=== PATIENT | female | born 1960 | race Caucasian/White ===

== ENCOUNTER 2017-08-13 12:17 | Emergency (ER) | payer MEDICARE ==
[2017-08-13 12:44] LABS: BILIRUBIN,URINE NEGATIVE (NEG); CLARITY,URINE CLEAR; COLOR,URINE YELLOW; GLUCOSE,URINE NEGATIVE (NEG); NITRITE,URINE NEGATIVE (NEG); PROTEIN,URINE NEGATIVE (NEG-TRACE); UROBILINOGEN,URINE 0.2 mg/dL (0.2 mg/dL)
[2017-08-13 13:08] LABS: BACTERIA,URINE 0 /HPF (0-FEW); SQUAMOUS EPITHELIAL CELL,UR MOD /LPF; YEAST,URINE PRESENT /HPF
[2017-08-13] MEDS: fentaNYL PF VIAL 100 MCG/2 ML VIAL IV (13:24)
[2017-08-13] MEDS: IV NORMAL SALINE 1000ML BAG 1,000 ML IV (13:24)
[2017-08-13] MEDS: ONDANSETRON PF 4 MG/2 ML VIAL. IV (13:24)
[2017-08-13 13:31] LABS: ADD MAN DIFF? NO
[2017-08-13 13:33] LABS: BASO # 0.1 x10^3/uL (0.0-0.2); BASO % 1 % (0-3); EOS # 0.2 x10^3/uL (0.0-0.7); EOS % 2 % (0-3); HEMOGLOBIN 15.5 g/dL (12.0-15.5); LYMPH # 2.4 x10^3/uL (1.0-4.8); LYMPH % 25 % (24-48); MEAN CORPUSCULAR HEMOGLOBIN 31 pg (25-35); MEAN CORPUSCULAR HGB CONC 34 g/dL (31-37); MEAN CORPUSCULAR VOLUME 92 fL (79-100); MONO # 0.8 x10^3/uL (0.0-1.1); MONO % 8 % (0-9); NEUT # 6.4 x10^3uL (1.8-7.7); NEUT % 65 % (31-73); PLATELET COUNT 249 x10^3/uL (140-400); RED BLOOD COUNT 5.03 x10^6/uL (3.50-5.40); RED CELL DISTRIBUTION WIDTH 13.9 % (11.5-14.5); WHITE BLOOD COUNT 9.8 x10^3/uL (4.0-11.0)
[2017-08-13 13:47] LABS: ANION GAP 8 (6-14); BLOOD UREA NITROGEN 13 mg/dL (7-20); BUN/CREATININE RATIO 12 (6-20); CARBON DIOXIDE 30 mmol/L (21-32); CHLORIDE 103 mmol/L (98-107); CREATININE 1.1 mg/dL (0.6-1.0); GFR 51.2; GLUCOSE 95 mg/dL (70-99); POTASSIUM 3.9 mmol/L (3.5-5.1); SODIUM 141 mmol/L (136-145)
[2017-08-13 13:53] LABS: ALBUMIN 3.3 g/dL (3.4-5.0); ALBUMIN/GLOBULIN RATIO 0.8 (1.0-1.7); ALK PHOS 85 U/L (46-116); ALT (SGPT) 40 U/L (14-59); AST (SGOT) 20 U/L (15-37); LIPASE 141 U/L (73-393); TOTAL BILIRUBIN 0.5 mg/dL (0.2-1.0); TOTAL PROTEIN 7.2 g/dL (6.4-8.2)
[2017-08-13] MEDS ORDERED: CONTRAST GIVEN MC (15:15)
[2017-08-13] MEDS: IOHEXOL 300 MG/ML 100ML VIAL. IV (15:15)
[2017-08-13] MEDS: FLUCONAZOLE 100 MG TABLET. PO (16:45)
[2017-08-15 13:22] LABS: CHLAMYDIA PROBE Negative (Negative); GC PROBE Negative (Negative)
== END 2017-08-13 16:50 | disposition home or self-care (01) ==
LOC: ER 12:17
DX: R10.31 Right lower quadrant pain (principal); R30.0 Dysuria; Z88.0 Allergy status to penicillin; Z88.2 Allergy status to sulfonamides; Z88.1 Allergy status to other antibiotic agents; Z88.8 Allergy status to other drugs, medicaments and biological substances; Z90.49 Acquired absence of other specified parts of digestive tract; Z90.710 Acquired absence of both cervix and uterus
CPT/HCPCS: 36415; 74177; 80053; 81001; 83690; 85025; 87086; 87491; 87591; 96361; 96374; 96375; 99285-25; J2405; J3010; J7030; Q0111; Q9967

== ENCOUNTER 2017-08-16 14:21 | Emergency (ER) | payer MEDICARE ==
[2017-08-16 15:25] LABS: ADD MAN DIFF? NO
[2017-08-16 15:26] LABS: BASO # 0.1 x10^3/uL (0.0-0.2); BASO % 1 % (0-3); EOS # 0.1 x10^3/uL (0.0-0.7); EOS % 1 % (0-3); HEMATOCRIT 47.9 % (36.0-47.0); HEMOGLOBIN 16.3 g/dL (12.0-15.5); LYMPH # 2.8 x10^3/uL (1.0-4.8); LYMPH % 25 % (24-48); MEAN CORPUSCULAR HEMOGLOBIN 31 pg (25-35); MEAN CORPUSCULAR HGB CONC 34 g/dL (31-37); MEAN CORPUSCULAR VOLUME 92 fL (79-100); MONO # 0.8 x10^3/uL (0.0-1.1); MONO % 8 % (0-9); NEUT # 7.1 x10^3uL (1.8-7.7); NEUT % 65 % (31-73); PLATELET COUNT 272 x10^3/uL (140-400); RED BLOOD COUNT 5.23 x10^6/uL (3.50-5.40); RED CELL DISTRIBUTION WIDTH 14.2 % (11.5-14.5); WHITE BLOOD COUNT 10.8 x10^3/uL (4.0-11.0)
[2017-08-16 15:27] LABS: BILIRUBIN,URINE NEGATIVE (NEG); CLARITY,URINE CLEAR; GLUCOSE,URINE NEGATIVE (NEG); NITRITE,URINE NEGATIVE (NEG); PROTEIN,URINE NEGATIVE (NEG-TRACE); UROBILINOGEN,URINE 0.2 mg/dL (0.2 mg/dL)
[2017-08-16 15:35] LABS: AMPHETAMINE/METHAMPHETAMINE NEG (NEG); BARBITURATES NEG (NEG); BENZODIAZEPINES NEG (NEG); CANNABINOIDS NEG (NEG); COCAINE NEG (NEG); ETHANOL, URINE NEG (NEG); METHADONE NEG (NEG); OPIATES NEG (NEG); PHENCYCLIDINE NEG (NEG)
[2017-08-16 15:36] LABS: COLOR,URINE STRAW; PARTIAL THROMBOPLASTIN TIME 28 SEC (24-38); PROTHROMBIN TIME PATIENT 12.6 SEC (11.7-14.0)
[2017-08-16 15:37] LABS: BACTERIA,URINE FEW /HPF (0-FEW); RBC,URINE RARE /HPF (0-2); SQUAMOUS EPITHELIAL CELL,UR FEW /LPF; WBC,URINE 0 /HPF (0-4)
[2017-08-16 15:41] LABS: ANION GAP 10 (6-14); BLOOD UREA NITROGEN 10 mg/dL (7-20); CALCIUM 9.1 mg/dL (8.5-10.1); CARBON DIOXIDE 27 mmol/L (21-32); CHLORIDE 100 mmol/L (98-107); CREATININE 1.2 mg/dL (0.6-1.0); GFR 46.3; GLUCOSE 93 mg/dL (70-99); POTASSIUM 3.3 mmol/L (3.5-5.1); SODIUM 137 mmol/L (136-145)
[2017-08-16 15:43] LABS: NEG OBC UR NEG; POS OBC UR POS; U PREG PATIENT NEGATIVE (NEG)
[2017-08-16 15:44] LABS: ALBUMIN 3.5 g/dL (3.4-5.0); ALK PHOS 95 U/L (46-116); ALT (SGPT) 46 U/L (14-59); AST (SGOT) 27 U/L (15-37); DIRECT BILIRUBIN 0.1 mg/dL (0.0-0.2); LIPASE 118 U/L (73-393); TOTAL BILIRUBIN 0.7 mg/dL (0.2-1.0); TOTAL PROTEIN 7.7 g/dL (6.4-8.2)
[2017-08-16] MEDS: IV NORMAL SALINE 1000ML BAG 1,000 ML IV (15:45)
[2017-08-16 15:53] LABS: CKMB MASS 0.5 ng/mL (0.0-3.6); CREATINE KINASE 71 U/L (26-192)
[2017-08-16 16:33] LABS: LACTIC ACID 1.4 mmol/L (0.4-2.0)
[2017-08-16] MEDS: ONDANSETRON PF 4 MG/2 ML VIAL. IV (17:33)
[2017-08-16] MEDS: POTASSIUM CHLORIDE 20 MEQ TABLET.ER. PO (18:30)
== END 2017-08-16 18:33 | disposition home or self-care (01) ==
LOC: ER 14:21
DX: M25.551 Pain in right hip (principal); R30.0 Dysuria; N89.8 Other specified noninflammatory disorders of vagina; R00.0 Tachycardia, unspecified; F17.200 Nicotine dependence, unspecified, uncomplicated; Z88.0 Allergy status to penicillin; Z88.2 Allergy status to sulfonamides; Z88.1 Allergy status to other antibiotic agents; Z88.8 Allergy status to other drugs, medicaments and biological substances; Z90.49 Acquired absence of other specified parts of digestive tract; Z90.710 Acquired absence of both cervix and uterus
CPT/HCPCS: 36415; 76700; 80048; 80076; 80307; 81001; 81025; 82553; 83605; 83690; 85025; 85610; 85730; 96360; 96361; 99285-25; J7030

== ENCOUNTER 2017-08-18 20:06 | Emergency (ER) | payer MEDICARE | END 2017-08-18 20:44 | disposition home or self-care (01) | LOC: ER 20:06 | DX: F41.9 Anxiety disorder, unspecified (principal); Z88.2 Allergy status to sulfonamides; Z88.1 Allergy status to other antibiotic agents; Z88.8 Allergy status to other drugs, medicaments and biological substances | CPT/HCPCS: 99284 ==

== ENCOUNTER 2017-08-24 18:24 | Emergency (ER) | payer MEDICARE ==
[2017-08-24] MEDS: LORazepam 1 MG TABLET PO (19:44)
[2017-08-24] MEDS: diphenhydrAMINE HCL 25 MG CAPSULE PO (19:44)
== END 2017-08-24 20:04 | disposition home or self-care (01) ==
LOC: ER 18:24
DX: F41.9 Anxiety disorder, unspecified (principal); Z76.0 Encounter for issue of repeat prescription; Z88.0 Allergy status to penicillin; Z88.1 Allergy status to other antibiotic agents; Z88.8 Allergy status to other drugs, medicaments and biological substances; Z88.2 Allergy status to sulfonamides
CPT/HCPCS: 99283; Q0163

== ENCOUNTER → 2017-09-20 | Outpatient (CLI) | payer MEDICARE | END | disposition home or self-care (01) | LOC: KCIC CT 08:44 | DX: K76.0 Fatty (change of) liver, not elsewhere classified (principal); M89.78 Major osseous defect, other site; R16.0 Hepatomegaly, not elsewhere classified | CPT/HCPCS: 74176 ==

== ENCOUNTER → 2019-01-14 | Outpatient (CLI) | payer MEDICARE, MEDICAID ==
[2017-08-24 19:21] VITALS: BP 119/71
[~2019-01-14] MED LIST: CYCL10TA2 PO; FAMO-63 PO; HYDR25TA PO; IOHEXOL 240 MG/ML 50ML VIAL. PO ONE; IOHEXOL 300 MG/ML 100ML VIAL. IV ONE; LORA0.5T96 PO; METF500T16 PO; ONDA4TAB10 SL; PALI6TAB3 PO
--- NOTE | 2019-01-14 12:48 | KCIC ---
PQRS Compliance statement: One or more of the following individualized dose reduction techniques were utilized for this examination: 1. Automated exposure control. 2. Adjustment of the mA and/or kV according to patient size. 3. Use of iterative reconstruction technique. Indication:Liver cyst, hematuria, frequent UTI. TECHNIQUE: CT abdomen and pelvis with IV contrast with multiplanar reformats. COMPARISON: 09/20/2017 CT. FINDINGS: Heart is normal in size. No pericardial or pleural effusion. Clear lung bases. Hepatic steatosis. Stable subcapsular segment 7 lesion dating back to 2009 measuring 1.6 x 1.5 cm most likely a cyst. Low attenuating splenic lesion measuring 1.7 x 1.7 cm also seen on previous exam from August 2017 likely cyst or hemangioma. Status post cholecystectomy. Pancreas, adrenals and kidneys are within normal limits. No enlarged retroperitoneal or pelvic adenopathy. No free pelvic fluid or ascites. Status post hysterectomy. No bowel obstruction. Normal appendix. Urinary bladder is decompressed however shows no radiopaque stones. No pneumoperitoneum. No suspicious bony lesion. IMPRESSION: 1. No nephrolithiasis or hydronephrosis. 2. Hepatic steatosis. Electronically signed by: Topher Rivas DO (01/14/2019 12:45 PM) [id number]
== END | disposition home or self-care (01) ==
LOC: KCIC CT 09:38
PROVIDERS: ATTEND Family Medicine
DX: K76.0 Fatty (change of) liver, not elsewhere classified (principal); K76.89 Other specified diseases of liver; Z90.49 Acquired absence of other specified parts of digestive tract; Z87.440 Personal history of urinary (tract) infections; Z90.710 Acquired absence of both cervix and uterus; Z87.891 Personal history of nicotine dependence
CPT/HCPCS: 74177; 82565; Q9966; Q9967

== ENCOUNTER 2020-01-08 19:04 | Emergency (ER) | payer MEDICARE, MEDICAID ==
[~2020-01-08] VITALS: Ht 157.5 cm; Wt 96.8 kg
[~2020-01-08 19:04] MED LIST changes: -IOHEXOL 240 MG/ML 50ML VIAL. PO ONE; -IOHEXOL 300 MG/ML 100ML VIAL. IV ONE
[2020-01-08 19:13] VITALS: BP 153/75
--- NOTE | 2020-01-08 20:22 | RAD ---
EXAM: 3 Views Right Shoulder DATE: 01/08/2020 8:09 PM INDICATION: Reason: RIGHT SHOULDER PAIN NO INJURY / Spl. Instructions: / History: COMPARISON: No Prior FINDINGS: There is no evidence for acute fracture or dislocation. AC joint is congruent. Subtle calcifications about the humeral head may be seen with calcific tendinitis. Humeral head is not high riding. IMPRESSION: 1. No acute fracture or dislocation. 2. Subtle calcifications about the humeral head may be seen with calcific tendinitis. Electronically signed by: Tavo Gracia MD (01/08/2020 8:19 PM) [facility]
[2020-01-08] MEDS ORDERED: HYDROcodone/APAP 5/325MG 1 TAB TABLET PO ONE (20:30)
[2020-01-08] MEDS ORDERED: ORPHENADRINE CITRATE 60 MG/2 ML VIAL. IM ONE (20:30)
[2020-01-08] MEDS ORDERED: METH4TAB2 PO (20:34)
[2020-01-08] MEDS ORDERED: HYDR-3164 PO (20:34)
[2020-01-08] MEDS ORDERED: ORPH100T PO (20:34)
--- NOTE | 2020-01-08 20:34 | PHYS DOC ---
Past Medical History Past Medical History: Anxiety Additional Past Medical Histor: INSOMNIA Past Surgical History: Cholecystectomy, Hysterectomy, Tonsillectomy Smoking Status: Current Every Day Smoker Alcohol Use: Rarely Drug Use: None General Adult EDM: Chief Complaint: SHOUDLER HPI: HPI: Patient is a 59 year old Female who presents with 1 week of sharp shooting pain that goes from the right side of her neck into her shoulder and down the lateral aspect of her upper arm. States she has been trying Tylenol and ibuprofen at home but it is not helping. She denies weakness in the extremity. Range of motion in the shoulder is very limited due to pain. Radial pulse strong and present. No unilateral swelling. Skin pink warm and dry. Cap refill less than 2 seconds. No joint swelling or redness or tenderness. There is tenderness with palpation to the right upper neck down into the shoulder and down the lateral arm aspect where she is having a sharp shooting pain. She states she is been exercising at home and she moves her arms around a lot. She states she does not remember injuring anything. She is tearful. She rates her pain 10 out of 10. 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 Review of Systems: Review of Systems: Constitutional: Denies fever or chills. [] Eyes: Denies change in visual acuity. [] HENT: Denies nasal congestion or sore throat. [] Respiratory: Denies cough or shortness of breath. [] Cardiovascular: Denies chest pain or edema. [] GI: Denies abdominal pain, nausea, vomiting, bloody stools or diarrhea. [] : Denies dysuria. [] Musculoskeletal: Denies back pain. Right neck to shoulder sharp radiating pain down into lateral upper arm joint pain. [] Integument: Denies rash. [] Neurologic: Denies headache, focal weakness or sensory changes. [] Endocrine: Denies polyuria or polydipsia. [] Lymphatic: Denies swollen glands. [] Psychiatric: Denies depression or anxiety. [] Heart Score: Risk Factors: Risk Factors: DM, Current or recent (<one month) smoker, HTN, HLP, family history of CAD, obesity. Risk Scores: Score 0 - 3: 2.5% MACE over next 6 weeks - Discharge Home Score 4 - 6: 20.3% MACE over next 6 weeks - Admit for Clinical Observation Score 7 - 10: 72.7% MACE over next 6 weeks - Early Invasive Strategies Allergies: Allergies: Allergies Coded Allergies Type Severity Reaction Last Updated Verified Penicillins Allergy Intermediate 07/01/15 Yes nitrofurantoin Allergy Unknown 08/13/17 Yes sulfamethoxazole Allergy Unknown 08/13/17 Yes trimethoprim Allergy Unknown 08/13/17 Yes Physical Exam: PE: Constitutional: Well developed, well nourished, no acute distress, non-toxic appearance. [] HENT: Normocephalic, atraumatic, bilateral external ears normal, oropharynx moist, no oral exudates, nose normal. [] Eyes: PERRLA, EOMI, conjunctiva normal, no discharge. [] Neck: Normal range of motion, no tenderness, supple, no stridor. [] Cardiovascular:Heart rate regular rhythm, no murmur [] Lungs & Thorax: Bilateral breath sounds clear to auscultation [] Abdomen: Bowel sounds normal, soft, no tenderness, no masses, no pulsatile masses. [] Skin: Warm, dry, no erythema, no rash. [] Back: No tenderness, no CVA tenderness. [] Extremities: Right neck down into my knowledge for and down upper lateral arm tenderness, no cyanosis, no clubbing, limited ROM due to pain, no edema. [] Neurologic: Alert and oriented X 3, normal motor function, normal sensory function, no focal deficits noted. [] Psychologic: Affect normal, judgement normal, mood normal. [] Current Patient Data: Vital Signs: Vital Signs Date Time Temp Pulse Resp B/P (MAP) Pulse Ox O2 Delivery O2 Flow Rate FiO2 01/08/20 19:13 98.6 114 24 153/75 (101) 97 Room Air 98.6 EKG: EKG: [] Radiology/Procedures: Radiology/Procedures: [] Impression: [facility] [address] [place] [address] IMAGING REPORT Signed PATIENT: VALERIA DUNN ACCOUNT: [id number] : 1960 LOCATION: ER AGE: 59 SEX: F EXAM STATUS: REG ER ORD. PHYSICIAN: JAVON SAWYER APRN REASON: RIGHT SHOULDER PAIN NO INJURY PROCEDURE: SHOULDER 2+V RIGHT EXAM: 3 Views Right Shoulder DATE: 01/08/2020 8:09 PM INDICATION: Reason: RIGHT SHOULDER PAIN NO INJURY / Spl. Instructions: / History: COMPARISON: No Prior FINDINGS: There is no evidence for acute fracture or dislocation. AC joint is congruent. Subtle calcifications about the humeral head may be seen with calcific tendinitis. Humeral head is not high riding. IMPRESSION: 1. No acute fracture or dislocation. 2. Subtle calcifications about the humeral head may be seen with calcific tendinitis. Electronically signed by: Tavo Pretty MD (01/08/2020 8:19 PM) [facility] DICTATED and SIGNED BY: TAVO PRETTY MD DATE: 01/08/202018 Course & Med Decision Making: Course & Med Decision Making Pertinent Labs and Imaging studies reviewed. (See chart for details) See HPI. Patient is placed in a arm sling. I have referred her to orthopedics doctor. She will be sent home with orphenadrine [place] and ibuprofen. Patient is also given medication prior to leaving. Alert and oriented x4. Amatory with a steady gait. Speaks in full complete sentences. Denies numbness or tingling, chest pain, shortness of breath, cough, fever, abdominal pain, nausea, vomiting, diarrhea, headache, dizziness, vision changes, focal weakness. [] Dragon Disclaimer: Dragon Disclaimer: This electronic medical record was generated, in whole or in part, using a voice recognition dictation system. Departure Departure Impression: Primary Impression: Shoulder pain, right Qualified Codes: M25.511 - Pain in right shoulder Disposition: 01 HOME, SELF-CARE Condition: STABLE Referrals: DIANNE CINTRON MD (PCP) GIACOMO HUSTON II, MD Patient Instructions: Cervical Radiculopathy Additional Instructions: Follow-up with orthopedic doctor soon as possible. Take medications as prescribed. Remember these medications will make you sleepy. Do not drive or drink alcohol with these medications. Also try using a heating pad. You can also buy the [id number] lidocaine patches. Scripts Orphenadrine Citrate (ORPHENADRINE CITRATE) 100 Mg Tablet.er 1 TAB PO BID, #14 TAB Prov: JAVON SAWYER APRN 01/08/20 Hydrocodone/Apap 5-325 (NORCO 5-325 TABLET) 1 Each Tablet 1 TAB PO PRN Q6HRS PRN for PAIN, #10 TAB 0 Refills Prov: JAVON SAWYER APRN 01/08/20 Methylprednisolone (MEDROL) 4 Mg Tab.ds.pk 1 PKG PO UD, #1 PKG Prov: JAVON SAWYER APRN 01/08/20 Justicifation of Admission Dx: Justifications for Admission: Justification of Admission Dx: N/A JAVON SAWYER COMPUTER DISCOVERY TEACHER Jan 08, 2020 20:34
== END 2020-01-08 20:51 | disposition home or self-care (01) ==
LOC: ER 19:04
DX: M25.511 Pain in right shoulder (principal); M54.2 Cervicalgia; F41.9 Anxiety disorder, unspecified; F17.200 Nicotine dependence, unspecified, uncomplicated; Z90.710 Acquired absence of both cervix and uterus; Z90.49 Acquired absence of other specified parts of digestive tract; Z88.0 Allergy status to penicillin; Z88.2 Allergy status to sulfonamides; Z88.8 Allergy status to other drugs, medicaments and biological substances
CPT/HCPCS: 73030; 96372; 99283; J2360; A4565

== ENCOUNTER 2020-06-10 15:22 | Emergency (ER) | payer MEDICAID, MEDICARE ==
[~2020-06-10] VITALS: Ht 160 cm; Wt 98.6 kg
[~2020-06-10 15:22] MED LIST changes: +HYDR-3164 PO; +METH4TAB2 PO; +ORPH100T PO
[2020-06-10] MEDS ORDERED: IV NORMAL SALINE 1000ML BAG 1,000 ML IV ONE (16:00)
--- NOTE | 2020-06-10 16:10 | PHYS DOC ---
Past Medical History Past Medical History: Anxiety, Diabetes-Type II Additional Past Medical Histor: INSOMNIA Past Surgical History: Cholecystectomy, Hysterectomy, Tonsillectomy Smoking Status: Current Every Day Smoker Alcohol Use: None Drug Use: None General Adult EDM: Chief Complaint: NAUSEA/VOMITING/DIARRHA HPI: HPI: Patient is a 60 year old female presents to the emergency department complaining of feeling nauseated and dizzy after taking her paliperidone medication last night at approximately 2130. Patient states that she woke up f rom bed at approximately 11:00 last night feeling sick to her stomach, denies vomiting. Patient states that she felt uneasy on her feet at that time, had gone back to bed and woke up this morning feeling "better ". Patient states her paliperidone dose was recently increased from 4.5 mg nightly to 6 mg nightly by her psychiatrist Dr.V. MONDRAGON. Patient states she did not call her psychiatrist this morning to tell him about her nausea and dizziness feelings after taking this medication increase. Patient denies headache, fever, chills, sore throat, body aches, rashes of her skin, loss of taste or loss of smell. Patient denies chest pain, chest palpitations, shortness of breath, chest congestion, or nasal congestion. Patient states she has a appointment tomorrow with her primary care physician for an ongoing hoarse throat. Patient states she is not sure how long the sore throat has been going on for, states "it has been going on for some time now ", patient denies problems swallowing, or problems breathing. Patient reports smoking a pack or more cigarettes per day since she was 15 years old, denies drinking alcohol or using illicit drugs. Review of Systems: Review of Systems: 14 body systems of review of systems have been reviewed. See HPI for pertinent positives and negative responses, otherwise all other systems are negative, nonpertinent or noncontributory. Heart Score: Risk Factors: Risk Factors: DM, Current or recent (<one month) smoker, HTN, HLP, family history of CAD, obesity. Risk Scores: Score 0 - 3: 2.5% MACE over next 6 weeks - Discharge Home Score 4 - 6: 20.3% MACE over next 6 weeks - Admit for Clinical Observation Score 7 - 10: 72.7% MACE over next 6 weeks - Early Invasive Strategies Current Medications: Current Medications Medications (Trade) Dose Ordered Sig/Julius Start Time Stop Time Status Last Admin Dose Admin Sodium Chloride 1,000 ml @ 1,000 mls/hr 1X ONCE 06/10/20 16:00 06/10/20 16:59 Allergies: Allergies: Allergies Coded Allergies Type Severity Reaction Last Updated Verified Penicillins Allergy Intermediate 07/01/15 Yes nitrofurantoin Allergy Unknown 08/13/17 Yes sulfamethoxazole Allergy Unknown 08/13/17 Yes trimethoprim Allergy Unknown 08/13/17 Yes Physical Exam: PE: Constitutional: Well developed, well nourished, no acute distress, non-toxic appearance. Patient dysphonic while speaking. Patient is in no apparent distress. HENT: Normocephalic, atraumatic, bilateral external ears normal, oropharynx moist, no oral exudates, nose normal. Tongue and oral mucosa dry. Oropharynx erythematous, no tonsillar swelling, no postnasal drip appreciated, no peritonsillar abscess appreciated, no exudative drainage appreciated. No uvular edema appreciated. No lymphadenopathy appreciated of the head and neck Eyes: PERRLA, EOMI, conjunctiva normal, no discharge. Neck: Normal range of motion, no tenderness, supple, no stridor. No nuchal rigidity, no meningismus signs appreciated. Cardiovascular:Heart rate regular rhythm, no murmur, heart sounds S1-S2, patient slightly tachycardic at 110 bpm during physical examination. Lungs & Thorax: Bilateral breath sounds clear to auscultation all lung santana. Abdomen: Bowel sounds normal, soft, no tenderness, no masses, no pulsatile masses. Skin: Warm, dry, no erythema, no rash. Back: No tenderness, no CVA tenderness. Extremities: No tenderness, no cyanosis, no clubbing, ROM intact, no edema. Neurologic: Alert and oriented X 3, normal motor function, normal sensory function, no focal deficits noted. Psychologic: Affect normal, judgement normal, mood normal. Current Patient Data: Vital Signs: Vital Signs Date Time Temp Pulse Resp B/P (MAP) Pulse Ox O2 Delivery O2 Flow Rate FiO2 06/10/20 15:39 98.2 120 18 132/91 (105) 96 Room Air 98.2 EKG: EKG: [] Radiology/Procedures: Radiology/Procedures: [] Course & Med Decision Making: Course & Med Decision Making Pertinent Labs and Imaging studies reviewed. (See chart for details) 60-year-old female, vital signs reviewed, physical examination concerning for laryngitis and dehydration, ED plan 1 L normal saline, rapid strep, COVID-19 testing, CBC, BMP. Urinalysis assay, urine drug screen Patient's lab results suggestive of dehydration, patient was given 1 L normal saline in the emergency department. Patient's slight tachycardia of 110 has resolved current heart rate is 87 on reevaluation of the patient, patient has no symptoms other than her hoarse throat. Patient's rapid strep. Patient's urine was not infected. Discussed with patient to resume her paliperidone dose at 4.5 mg, call her psychiatrist tomorrow to let him know of her symptoms when she increased it to 6 mg. And to follow his direction for further dosing. Encourage patient to keep her appointment with Dr. CINTRON tomorrow for further evaluation of her laryngitis. Gave verbal understanding of discharge home instructions, follow-up with primary care and psychiatry tomorrow, return to ER precautions or concerns, was discharged home. Patient's symptoms was most likely adverse drug reaction related to increased dosing of her psychiatry medications. Dysphonia related to patient's current laryngitis. This is unlikely a deep tissue infection, epiglottitis, croup, bacteria lucien-itis, allergic rhinitis, gastric reflux disease, hiatal hernia, vocal cord polyps, vo herber cord paralysis. Unlikely related to inhaled irritants or toxins, patient's urinalysis drug screen was negative. Elviaon Disclaimer: Draggeovani Disclaimer: This electronic medical record was generated, in whole or in part, using a voice recognition dictation system. Departure Departure Impression: Primary Impression: Adverse reaction to drug in therapeutic use Additional Impression: Laryngitis Disposition: 01 DC HOME SELF CARE/HOMELESS Condition: GOOD Referrals: DIANNE CINTRON MD (PCP) Additional Instructions: Please keep your appointment with Dr. CINTRON tomorrow, please let him know your rapid strep-A was negative. You did not receive any medications in the emergenc y department except for 1 L of normal saline because your lab values indicated a hemoconcentration with a hemoglobin of 15.9 and a hematocrit of 47.1. Please let your psychiatrist know tomorrow that you have reduced your paliperidone dose back to 4.5 mg related to your experience of nausea and dizziness. Please follow your psychiatrist direction for further use of your paliperidone medication. Please return to the emergency department for any worsening symptoms or further concerns. EMERGENCY DEPARTMENT GENERAL DISCHARGE INSTRUCTIONS Thank you for coming to [facility] Emergency Department (ED) today and trusting us with you care. We trust that you had a positive experience in our Emergency Department. If you wish to speak to the department management, you may call the Director at [phone]. YOUR FOLLOW UP INSTRUCTIONS ARE FOLLOWS: 1. Do you have a private Doctor? If you do not have a private doctor, please ask for a resource list of physicians or clinics that may be able to assist you with follow up care. 2. The Emergency Physicain has interpreted your x-rays. The X-Ray specialist will also review them. If there is a change in the findings, you will be notified in 48 hours when at all possible. 3. A lab test or culture has been done, your results will be reviewed and you will be notified if you need a change in treatment. ADDITIONAL INSTRUCTIONS AND INFORMATION: 1. Your care today has been supervised by a physician who is specially trained in emergency care. Many problems require more than one evaluation for a complete diagnosis and treatment. We recommend that you schedule your follow up appointment as recommended to ensure complete treatment of you illness or injury. If you are unable to obtain follow up care and continue to have a problem, or if your condition worsens, we recommend that you return to the ED. 2. We are not able to safely determine your condition over the phone nor are we able to give sound medical advice over the phone. For these safety reasons, if you call for medical advice we will ask you to come to the ED for further evaluation. 3. If you have any questions regarding these discharge instructions please call the ED at [phone]. SAFETY INFORMATION: In the interest of safety, wellness, and injury prevention; we encourage you to wear your sealbelt, if you smoke; quite smoking, and we encourage family to use a protective helmet for bicycling and other sporting events that present an increased risk for head injury. IF YOUR SYMPTOMS WORSEN OR NEW SYMPTOMS DEVELOP, OR YOU HAVE CONCERNS ABOUT YOUR CONDITION; OR IF YOUR CONDITION WORSENS WHILE YOU ARE WAITING FOR YOUR FOLLOW UP APPOINTMENT; EITHER CONTACT YOUR PRIMARY CARE DOCTOR, THE PHYSICIAN WHOSE NAME AND NUMBER YOU WERE G SOFYEN, OR RETURN TO THE ED IMMEDIATELY. HARVINDER URIAS APRN Jun 10, 2020 16:10
[2020-06-10 16:24] LABS: BASO # 0.1 x10^3/uL (0.0-0.2); BASO % 1 % (0-3); EOS # 0.1 x10^3/uL (0.0-0.7); EOS % 1 % (0-3); HEMATOCRIT 47.1 % (36.0-47.0); HEMOGLOBIN 15.9 g/dL (12.0-15.5); LYMPH # 2.2 x10^3/uL (1.0-4.8); LYMPH % 20 % (24-48); MEAN CORPUSCULAR HEMOGLOBIN 31 pg (25-35); MEAN CORPUSCULAR HGB CONC 34 g/dL (31-37); MEAN CORPUSCULAR VOLUME 91 fL (79-100); MONO % 9 % (0-9); NEUT # 7.5 x10^3/uL (1.8-7.7); NEUT % 69 % (31-73); PLATELET COUNT 240 x10^3/uL (140-400); RED BLOOD COUNT 5.18 x10^6/uL (3.50-5.40); RED CELL DISTRIBUTION WIDTH 14.4 % (11.5-14.5); WHITE BLOOD COUNT 10.9 x10^3/uL (4.0-11.0)
[2020-06-10 16:45] LABS: CALCIUM 8.9 mg/dL (8.5-10.1); CREATININE 1.1 mg/dL (0.6-1.0); GFR 50.7; POTASSIUM 3.4 mmol/L (3.5-5.1)
[2020-06-10 17:35] LABS: BILIRUBIN,URINE NEGATIVE (NEG); CLARITY,URINE CLEAR; COLOR,URINE YELLOW; NITRITE,URINE NEGATIVE (NEG); PH,URINE 5.5 (<5.0-8.0); PROTEIN,URINE NEGATIVE (NEG-TRACE); UROBILINOGEN,URINE 0.2 mg/dL (0.2 mg/dL)
[2020-06-10 17:45] LABS: RBC,URINE OCC /HPF (0-2); WBC,URINE OCC /HPF (0-4)
[2020-06-10 17:46] LABS: BACTERIA,URINE FEW /HPF (0-FEW); BARBITURATES NEG (NEG); BENZODIAZEPINES NEG (NEG); CANNABINOIDS NEG (NEG); COCAINE NEG (NEG); METHADONE NEG (NEG); OPIATES NEG (NEG); PHENCYCLIDINE NEG (NEG)
[2020-06-10 17:47] LABS: AMPHETAMINE/METHAMPHETAMINE NEG (NEG)
[2020-06-10 18:12] VITALS: BP 136/72
--- NOTE | 2020-06-12 09:38 | NUR ---
IP: Attempted to contact pt concerning COVID results. No answer, no voicemail.
== END 2020-06-10 18:39 | disposition home or self-care (01) ==
LOC: ER 15:22
DX: J04.0 Acute laryngitis (principal); T43.595A Adverse effect of other antipsychotics and neuroleptics, initial encounter; Z20.822 Contact with and (suspected) exposure to COVID-19; E11.9 Type 2 diabetes mellitus without complications; F17.200 Nicotine dependence, unspecified, uncomplicated; Z88.0 Allergy status to penicillin; Z88.1 Allergy status to other antibiotic agents; Z88.2 Allergy status to sulfonamides; Z88.3 Allergy status to other anti-infective agents; Y92.89 Other specified places as the place of occurrence of the external cause
CPT/HCPCS: 36415; 80048; 80307; 81001; 85025; 87070; 87880; 96360; 99285; C9803; J7030; U0003